=== PATIENT | female | born 1995 | race Caucasian/White ===

== ENCOUNTER → 2020-10-06 15:02 | Outpatient (BNVA) | payer MEDICAID, SELFPAY | PROVIDERS: Visit Provider Obstetrics & Gynecology | DX: R87.611 Atypical squamous cells cannot exclude high grade squamous intraepithelial lesion on cytologic smear of cervix (ASC-H) (principal); N76.0 Acute vaginitis; B96.89 Other specified bacterial agents as the cause of diseases classified elsewhere | CPT/HCPCS: 87210; 88305 ==

== ENCOUNTER → 2021-04-22 10:45 | Outpatient (BNVA) | payer SELFPAY | PROVIDERS: Visit Provider Obstetrics & Gynecology | DX: Z12.4 Encounter for screening for malignant neoplasm of cervix (principal); N87.1 Moderate cervical dysplasia | CPT/HCPCS: 88175 ==

== ENCOUNTER → 2021-06-16 14:30 | Outpatient (BNVA) | payer MEDICAID, SELFPAY | PROVIDERS: Visit Provider Obstetrics & Gynecology | DX: R87.611 Atypical squamous cells cannot exclude high grade squamous intraepithelial lesion on cytologic smear of cervix (ASC-H) (principal) | CPT/HCPCS: 88305 ==

== ENCOUNTER 2022-10-13 17:25 | Outpatient (CLI) | payer BC, MEDICAID, SELFPAY ==
[2022-10-13] VITALS (32 sets, daily range): BP systolic 96–146; BP diastolic 53–85; PULSE 90–149; RESP 17–18; TEMP 36.6–36.8; O2SAT 98–100; BMI 34.3
--- NOTE | 2022-10-13 17:30 | PC.NURSE ---
Patient stated her pain started at [address] home from work. She stated her pain comes and goes along the top part of her abd.
[2022-10-13] MEDS: terbutaline 1 mg/mL INJ 0.25 MG SUBCUT (18:45)
[2022-10-13 19:47] LABS: Basophils % 0.2 %; Eosinophils # 0.1 10^3/uL (0.0-0.8); Eosinophils % 0.5 %; Hematocrit 38.8 % (37.0-47.0); Hemoglobin 12.6 g/dL (11.5-15.3); Lymphocytes # 1.6 10^3/uL (0.8-4.8); Lymphocytes % 9.6 %; Mean Corpuscular HGB Conc 32.5 g/dL (30.0-36.0); Mean Corpuscular Hemoglobin 28.8 pg (28.0-34.0); Mean Corpuscular Volume 88.8 fl (81-99); Mean Platelet Volume 10.6 fL (7.4-10.4); Monocytes # 0.8 10^3/uL (0.2-0.9); Monocytes % 4.8 %; Neutrophils # 13.97 10^3/uL (1.8-7.7); Neutrophils % 84.6 %; Nucleated Red Blood Cells % 0 %; Platelet Count 213 10^3/cmm (130-400); Red Blood Count 4.37 10^6/uL (4.1-5.3); Red Cell Distribution Width 12.5 % (12.1-15.1); White Blood Count 16.5 10^3/uL (4.0-10.0)
[2022-10-13 19:56] LABS: Urine Appearance Hazy (CLEAR); Urine Color Yellow (Yellow); pH Urine 6 (5-7)
[2022-10-13 19:57] LABS: Add Urine Culture? No; Add Urine Microscopic? YES; Bacteria Urine 3+ /hpf; Bilirubin Urine Neg (Negative); Blood Urine Neg (Negative); Glucose Urine UA Norm (Normal); Ketones Urine Negative (Negative); Leukocyte Esterase Urine Negative (Negative); Nitrate Urine Negative (Negative); Protein Urine Neg (Negative); RBC Urine 0-4 /hpf (0-2); Squamous Epithelial Cell Urine 25-40 /hpf (0-5); Urobilinogen Urine Norm (Negative); WBC Urine 0-4 /hpf (0-5)
[2022-10-13] MEDS: ondansetron 2 mg/ML SDV 2 mL 4 MG IVP (19:58)
[2022-10-13] MEDS: lactated ringers 1,000 ML 999 ML IV (19:58)
[2022-10-13 19:59] LABS: Alanine Aminotransferase 12 U/L (0-33); Albumin Level 3.7 g/dL (3.5-5.2); Alkaline Phosphatase 96 U/L (35-105); Anion Gap 18.1 (5-19); Aspartate Amino Transferase 18 U/L (0-32); Blood Urea Nitrogen 6 mg/dL (6-20); Calcium 9.6 mg/dL (8.5-10.5); Carbon Dioxide 21 mmol/L (22-29); Chloride 101 mmol/L (98-107); Globulin 3.7 g/dL (1.3-4.6); Glomerular Filtration Rate 266.9 mL/min (90-130); Glucose 115 mg/dL (65-115); Osmolality Calculated 283 mOsm/kg (285-295); Potassium 3.1 mmol/L (3.5-5.1); Sodium 137 mmol/L (136-145); Total Bilirubin 0.3 mg/dL (0.15-1.2); Total Protein 7.4 g/dL (6.6-8.7); Uric Acid 3.1 mg/dL (2.4-5.7)
[2022-10-13] MEDS: pantoprazole 40 mg SDV IVP (19:59)
[2022-10-13 20:05] LABS: Urine Creatinine 70 mg/dL (28-217); Urine Protein Random 9 mg/dL
[2022-10-13 20:11] LABS: UPRO/UCREAT Ratio 0.13 mg/mg CR
== END 2022-10-13 21:24 | disposition home or self-care (01) ==
LOC: OPOB 17:32 → OBGYN 17:34
PROVIDERS: Visit Provider Family Medicine
DX: O26.899 Other specified pregnancy related conditions, unspecified trimester (principal); Z3A.00 Weeks of gestation of pregnancy not specified; R10.9 Unspecified abdominal pain
CPT/HCPCS: 36415; 59025; 80053; 81001; 82570; 84156; 84550; 85025; 96372; 96374; 99211; C9113; J2405; J3105; J7120